=== PATIENT | male | born 1975 | race Caucasian/White ===

== ENCOUNTER → 2021-10-14 | Outpatient (CLI) | payer OTHER ==
[~2021-10-14] MED LIST: ATORVASTATIN CA20 MG PO; METFORMIN HCL1000 MG PO; TESTOSTERO200 MG/1 M IM; ULTRAM50 MG PO; VITAMIN D21250 MCG PO
[2021-10-14 10:47] LABS: BUN/CREATININE RATIO 7 (0-10)
== END ==
LOC: OPSV2 08:59
PROVIDERS: Anesthesiology
DX: Z01.818 Encounter for other preprocedural examination (principal)
CPT/HCPCS: 36415; 80048; 93005

== ENCOUNTER → 2021-10-21 | Day surgery (SDC) | payer OTHER ==
[~2021-10-21] VITALS: Ht 175.3 cm; Wt 98.9 kg
== END | disposition home or self-care (01) ==
LOC: OR 05:25
DX: S83.232A Complex tear of medial meniscus, current injury, left knee, initial encounter (principal); M94.262 Chondromalacia, left knee; W20.8XXA Other cause of strike by thrown, projected or falling object, initial encounter; Y93.89 Activity, other specified; E78.5 Hyperlipidemia, unspecified; E11.9 Type 2 diabetes mellitus without complications; F17.210 Nicotine dependence, cigarettes, uncomplicated; Z79.84 Long term (current) use of oral hypoglycemic drugs; Z79.899 Other long term (current) drug therapy
CPT/HCPCS: 82962; J0171; J0690; J1100; J1170; J1885; J2001; J2250; J2370; J2405; J2704; J3010; J7030; J7120